=== PATIENT | female | born 1975 | race African-American/Black ===

== ENCOUNTER 2021-09-20 09:24 | Outpatient (CLI) | payer OTHER ==
[2021-09-20 10:29] LABS: Hemoglobin 11.6 g/dL (12.0-15.5); Mean Corpuscular HGB CONC 30.2 g/dL (32.0-36.0); Mean Corpuscular Hemoglobin 26.1 pg (27.0-33.0); Mean Corpuscular Volume 86.5 fl (81.6-98.3); Mean Platelet Volume 9.2 fl (7.4-10.4); Platelet Count 397 10x3/uL (150-450); RBC Distribution Width 21.8 % (11.5-14.5); Red Blood Cell (RBC) Count 4.44 10x6/uL (3.90-5.03)
[2021-09-20 10:52] LABS: BHCG - Serum Negative (NEGATIVE); Pregs Control Background? CLEAR/WHITE (CLR/WHITE); Pregs Control Bar Appear? YES (CONTROL BAR)
[2021-09-20 10:54] LABS: Anion Gap 13 mmol/L (10-20); BUN (Urea Nitrogen) 11 mg/dL (7.0-18.7); Calc. Creatinine Clearance 0 mL/min (70-130); Calcium 9.3 mg/dL (7.8-10.44); Carbon Dioxide 25 mmol/L (22-29); Chloride 103 mmol/L (98-107); Glucose 86 mg/dL (70-105); Potassium 4.2 mmol/L (3.5-5.1); Sodium 137 mmol/L (136-145)
[2021-09-20 18:46] LABS: SARS-CoV-2 PCR by NAA Not Detected (NotDetected)
== END 2021-09-20 09:25 | disposition home or self-care (01) ==
LOC: CSHLAB 09:24
PROVIDERS: ATTEND Obstetrics & Gynecology
DX: Z01.812 Encounter for preprocedural laboratory examination (principal); Z20.822 Contact with and (suspected) exposure to COVID-19; D25.9 Leiomyoma of uterus, unspecified; N92.0 Excessive and frequent menstruation with regular cycle
CPT/HCPCS: 80048; 84703; 85027; 86850; 86900; 86901; U0003; U0005

== ENCOUNTER 2021-09-25 06:01 | Day surgery (SDC) | payer OTHER ==
[2021-09-19 12:19] VITALS: BMI 30.9
[2021-09-20 10:29] LABS: Hemoglobin 11.6 g/dL (12.0-15.5); Mean Corpuscular HGB CONC 30.2 g/dL (32.0-36.0); Mean Corpuscular Hemoglobin 26.1 pg (27.0-33.0); Mean Corpuscular Volume 86.5 fl (81.6-98.3); Mean Platelet Volume 9.2 fl (7.4-10.4); Platelet Count 397 10x3/uL (150-450); RBC Distribution Width 21.8 % (11.5-14.5); Red Blood Cell (RBC) Count 4.44 10x6/uL (3.90-5.03)
[2021-09-20 10:52] LABS: BHCG - Serum Negative (NEGATIVE); Pregs Control Background? CLEAR/WHITE (CLR/WHITE); Pregs Control Bar Appear? YES (CONTROL BAR)
[2021-09-20 10:54] LABS: Anion Gap 13 mmol/L (10-20); BUN (Urea Nitrogen) 11 mg/dL (7.0-18.7); Calc. Creatinine Clearance 0 mL/min (70-130); Calcium 9.3 mg/dL (7.8-10.44); Carbon Dioxide 25 mmol/L (22-29); Chloride 103 mmol/L (98-107); Glucose 86 mg/dL (70-105); Potassium 4.2 mmol/L (3.5-5.1); Sodium 137 mmol/L (136-145)
[2021-09-20 18:46] LABS: SARS-CoV-2 PCR by NAA Not Detected (NotDetected)
[2021-09-25] MEDS ORDERED: CeleCOXIB 100 MG CAP ONE (06:07)
[2021-09-25] MEDS ORDERED: Famotidine/PF 20 mg/2ml Vial ONE (06:07)
[2021-09-25] MEDS ORDERED: Lidocaine 1% MPF 2 ML VIAL ONE (06:07)
[2021-09-25] MEDS ORDERED: Methylene Blue 50 MG/10 ML AMPUL ONE (06:38)
[2021-09-25] MEDS ORDERED: EPINEPHrine 1 MG/ML AMP ONE (06:38)
[2021-09-25] MEDS ORDERED: Bupivacaine PF 0.5% 30 ML VIAL ONE (06:39)
[2021-09-25] MEDS ORDERED: Levofloxacin 500 mg/D5W 100 ml Premix Bag ONE (06:41)
[2021-09-25] MEDS ORDERED: PROPOFOL 20 ML ONE (07:07)
[2021-09-25] MEDS ORDERED: Dexamethasone 4 mg/ml Vial ONE (07:07)
[2021-09-25] MEDS ORDERED: Rocuronium Bromide 10 MG/ML (10ML VIAL) ONE (07:07)
[2021-09-25] MEDS ORDERED: Fentanyl 100 MCG/2 ML VIAL ONE ×3 (07:07→09:54)
[2021-09-25] MEDS ORDERED: Metoclopramide HCl 10 MG/2 ML VIAL ONE (07:07)
[2021-09-25] MEDS ORDERED: Lidocaine 1% PF 5 ML VIAL ONE (07:07)
[2021-09-25] MEDS ORDERED: Ondansetron PF 4 MG/2 ML Vial ONE (07:07)
[2021-09-25] MEDS ORDERED: Glycopyrrolate 0.2 MG/ML 5 ML SYRINGE ONE (07:07)
[2021-09-25] MEDS ORDERED: Midazolam HCl 2 mg/2 ml Vial ONE (07:30)
[2021-09-25] MEDS ORDERED: Ropivacaine 0.2% 550 ML 550 ML NERVE BLCK SCH (08:00)
[2021-09-25] MEDS ORDERED: HYDROcodone/Acetaminophen 5/325 mg Tablet ONE (10:51)
== END 2021-09-25 13:25 | disposition home or self-care (01) ==
LOC: CSHSDC 06:01
PROVIDERS: ATTEND Obstetrics & Gynecology
PROC: 0UT74ZZ Resection of Bilateral Fallopian Tubes, Percutaneous Endoscopic Approach (ICD-10-PCS; principal; 2021-09-25)
PROC: 0UT94ZZ Resection of Uterus, Percutaneous Endoscopic Approach (ICD-10-PCS; principal; 2021-09-25)
DX: D25.9 Leiomyoma of uterus, unspecified (principal); N80.0 Endometriosis of uterus; D64.9 Anemia, unspecified; K21.9 Gastro-esophageal reflux disease without esophagitis; F17.210 Nicotine dependence, cigarettes, uncomplicated; E03.9 Hypothyroidism, unspecified; Z86.73 Personal history of transient ischemic attack (TIA), and cerebral infarction without residual deficits; Z79.82 Long term (current) use of aspirin; Z88.0 Allergy status to penicillin; Z20.822 Contact with and (suspected) exposure to COVID-19
CPT/HCPCS: 80048; 84703; 85027; 86850; 86900; 86901; 88307; A4306; J0171; J1100; J1956; J2250; J2405; J2704; J2765; J2795; J3010; J3490; Q9968; S0020; S0028; U0003; U0005